=== PATIENT | male | born 1980 | race Caucasian/White ===

== ENCOUNTER 2018-04-10 00:46 | Emergency (ER) | payer OTHER ==
[~2018-04-10] VITALS: Ht 175.3 cm; Wt 90.7 kg
[~2018-04-10 00:46] MED LIST: BENTYL 20 MG TA20 M1 PO; CEFDINIR300 MG PO; CHOLESTEROL MC; CIPROFLOXACIN500 M1 PO; COLACE100 MG PO; HYDROCODONE-APA1 TA1 PO; MIRALAX17 GM PO; NORCO 5-325 TA1 EACH PO; OMEPRAZOLE10 MG PO; ONDANSETRON HCL4 M2 PO; PERCOCET 7.5-31 EACH PO; PHENERGAN 25 MG25 M1 PO; PRENATE CHEWABLE1 MG PO; PROTONIX40 M1 PO; PYRIDIUM200 MG PO; REGLAN 10 MG TA10 MG PO; ROBAXIN 750 MG750 M1 PO; VITAMIN B-1100 M1 PO; ZANTAC 150MG T150 MG PO; ZOFRAN ODT4 MG PO
[2018-04-10] MEDS ORDERED: IBUPROFEN 800800 MG PO (01:36)
[2018-04-10] MEDS ORDERED: ACETAMINOPHEN-1 EAC1 PO (01:36)
[2018-04-10 01:42] VITALS: BP 141/82
== END 2018-04-10 01:51 | disposition home or self-care (01) ==
LOC: M.ERS 00:46
DX: T25.222A Burn of second degree of left foot, initial encounter (principal); K21.9 Gastro-esophageal reflux disease without esophagitis; Z90.49 Acquired absence of other specified parts of digestive tract; F17.210 Nicotine dependence, cigarettes, uncomplicated; X10.2XXA Contact with fats and cooking oils, initial encounter; Y93.89 Activity, other specified; Y92.89 Other specified places as the place of occurrence of the external cause; Y99.8 Other external cause status